=== PATIENT | male | born 1985 | race Caucasian/White ===

== ENCOUNTER 2016-12-27 23:45 | Emergency (ER) | payer OTHER ==
[~2016-12-27 23:45] MED LIST: ANUSOL-HC25 MG PR; NO HOME MEDICATION
[2016-12-28] MEDS ORDERED: NAPROSYN500 M1 PO (02:44)
[2016-12-28] MEDS ORDERED: BENZONATATE200 M1 PO (02:44)
== END 2016-12-28 02:44 ==
LOC: EDMED 23:45
DX: J20.9 Acute bronchitis, unspecified (principal)